=== PATIENT | male | born 1990 | race Caucasian/White ===

== ENCOUNTER 2016-08-07 19:22 | Emergency (ER) | payer SELFPAY ==
[~2016-08-07] VITALS: Ht 190.5 cm; Wt 87.3 kg
[2016-08-07 19:25] VITALS: TEMP 36.8; Ht 190.5 cm; Wt 87.3 kg
[2016-08-07] MEDS ORDERED: SODIUM CHLORIDE 0.9% 1000ML 1,000 ML IV STA ×2 (19:33)
[2016-08-07] MEDS ORDERED: ONDANSETRON INJ 2 MG/ML 2 ML VIAL IV STA (19:33)
[2016-08-07] MEDS ORDERED: OPTIRAY 320 IV PRN (19:45)
--- NOTE | 2016-08-07 19:48 | EMERGENCY ROOM VISIT NOTE ---
History Report prepared by Sami: Magda Villa Under the Supervision of: Dr. Ezequiel Reis M.D. First contact with patient: 19:29 Chief Complaint: HYPOGLYCEMIA Stated Complaint: LOW BLOOD SUGAR History of Present Illness The patient is a 26 year old male who presents to the Emergency Room with complaints of hyperglycemia over the past several days. His blood sugar upon arrival was 371. The patient has a history of diabetes since he was in middle school. He is insulin dependent and uses insulin injections. He did take his regular dose of insulin today, but hasn't eaten anything. He has been in DKA before but does not think he is currently in DKA. Currently, he complains of a lack of energy, decreased appetite, nausea, and central abdominal pain. Nothing makes the abdominal pain better or worse. It fluctuates between a 3 and 6 out of 10 in severity. He has had similar abdominal pain with elevated blood sugar in the past. He notes that he had one episode of diarrhea few days ago. He recently had cold like symptoms and reports a residual runny nose. Denies loss of consciousness, fever, chills, cough, sore throat, vomiting, urinary symptoms , back pain, or other complaints. He still has his gallbladder and appendix. No history of pancreatitis. Source of History: patient Onset: several days ago Position: other (global) Symptom Intensity: blood sugar 371 Timing: other (persistent) Associated Symptoms: + abdominal pain, + diarrhea, + nausea, No LOC, No chills, No cough, No fevers, No sorethroat, No urinary symptoms, No vomiting Note: Other symptoms: lack of energy Review of Systems See HPI for pertinent positives & negatives. A total of 10 systems reviewed and were otherwise negative. Past Medical & Surgical Medical Problems: (1) Diabetes Family History Diabetes mellitus FH: heart disease FHx: gallbladder disease Hypertension Social History Smoking Status: Former Smoker Alcohol Use: none Marital Status: single Housing Status: lives with family Current/Historical Medications Scheduled Insulin Human NPH (Humulin N), 24 UNITS SC QAM Insulin Human NPH (Humulin N), 12 UNITS SC QPM Insulin Lispro (Human) (Humalog), 1 DOSE SC UD Allergies Coded Allergies: No Known Allergies (Unverified , 08/07/16) Physical Exam Vital Signs Date Time Temp Pulse Resp B/P Pulse Ox O2 Delivery O2 Flow Rate FiO2 08/07/16 21:07 89 17 124/67 99 Room Air 08/07/16 20:50 60 08/07/16 20:04 70 20 118/65 98 Room Air 08/07/16 19:25 36.8 98 20 122/79 99 Room Air Physical Exam GENERAL: Patient is in no acute distress. HEENT: No acute trauma, normocephalic atraumatic, mucous membranes moist, no nasal congestion, no scleral icterus. NECK: No stridor, no adenopathy, no meningismus, trachea is midline. LUNGS: Clear to auscultation bilaterally, no wheeze, no rhonchi, breath sounds equal. HEART: Tachycardic with a regular rhythm, no murmurs. ABDOMEN: Soft, tender primarily in the right lower quadrant, mildly tender in the epigastrium, bowel sounds positive, no hernias, no peritonitis. EXTREMITIES: No cyanosis or edema, full range of motion of all the joints without pain or difficulty, no signs for acute trauma. NEUROLOGIC: Oriented x 3, no acute motor or sensory deficits, no focal weakness. SKIN: No rash, no jaundice, no diaphoresis. Medical Decision & Procedures ER Provider Diagnostic Interpretation: Radiology results and stated below per my review and radiologist interpretation: CHEST ONE VIEW PORTABLE CLINICAL HISTORY: Altered mental status. Weakness. COMPARISON STUDY: No previous studies for comparison. FINDINGS: The cardiac and mediastinal contours are normal. There is no evidence of focal pulmonary consolidation. There is no evidence of failure. No pleural effusions are visualized.[ IMPRESSION: No active disease in the chest. Electronically signed by: Ian Howard M.D. 08/07/2016 7:56 PM Dictated Date/Time: 08/07/2016 7:[address] ABD/PELVIS IV CONTRAST ONLY CLINICAL HISTORY: Right lower quadrant abdominal pain COMPARISON STUDY: None. TECHNIQUE: Following the IV administration of 116 mL of Optiray-320, CT scan of the abdomen and pelvis was performed from the lung bases to the proximal femurs. Images are reviewed in the axial, sagittal, and coronal planes. IV contrast was administered without complication. CT DOSE: 339.88 mGy.cm FINDINGS: Lower chest: The heart is normal in size and configuration, without pericardial effusion. The lung bases and pleural spaces are clear. Liver: The contrast-enhanced liver is normal in size, contour, and attenuation. There is no intrahepatic biliary ductal dilatation. The hepatic veins and portal veins are patent. Gallbladder: Contracted Spleen: Normal in size and attenuation. Pancreas: Unremarkable. Adrenal glands: Unremarkable. Kidneys: There is symmetric renal cortical enhancement. The kidneys are normal in size without hydronephrosis. Bowel: There are no transition zones indicate bowel obstruction. Evaluation the bowel is limited given the lack of oral contrast and the possibility of intra-abdominal fat. There is a low-lying cecum. The appendix is difficult to visualize in its entirety. There are no findings to indicate acute appendicitis. There is no evidence of acute diverticulitis. Peritoneum: There is no intraperitoneal free air or abdominal ascites. Vasculature: The abdominal aorta is normal in course and caliber. Adenopathy: None. Pelvic viscera: The bladder, and pelvic viscera are unremarkable. Skeletal structures: No destructive osseous lesions are seen. IMPRESSION: 1. Difficult study to interpret given the lack of orally administered contrast and the possibility of intra-abdominal fat 2. No evidence of bowel obstruction. No evidence of free air 3. No evidence of acute diverticulitis 4. The appendix is difficult to visualize in its entirety. The visualized portions of the appendix are felt to be within normal limits. Electronically signed by: Ian Howard M.D. 08/07/2016 9:32 PM Dictated Date/Time: 08/07/2016 9:26 PM Laboratory Results 08/07/16 20:00 Red Blood Count 4.57, Mean Corpuscular Volume 90.8, Mean Corpuscular Hemoglobin 31.3, Mean Corpuscular Hemoglobin Concent 34.5, Mean Platelet Volume 10.7, Neutrophils (%) (Auto) 88.2, Lymphocytes (%) (Auto) 7.6, Monocytes (%) (Auto) 3.5, Eosinophils (%) (Auto) 0.3, Basophils (%) (Auto) 0.2, Neutrophils # (Auto) 9.23, Lymphocytes # (Auto) 0.79, Monocytes # (Auto) 0.37, Eosinophils # (Auto) 0.03, Basophils # (Auto) 0.02 08/07/16 20:00 Test 08/07/16 20:00 08/07/16 21:38 White Blood Count 10.46 K/uL (4.8-10.8) Red Blood Count 4.57 M/uL (4.7-6.1) Hemoglobin 14.3 g/dL (14.0-18.0) Hematocrit 41.5 % (42-52) Mean Corpuscular Volume 90.8 fL (80-100) Mean Corpuscular Hemoglobin 31.3 pg (25-34) Mean Corpuscular Hemoglobin Concent 34.5 g/dl (32-36) Platelet Count 293 K/uL (130-400) Mean Platelet Volume 10.7 fL (7.4-10.4) Neutrophils (%) (Auto) 88.2 % Lymphocytes (%) (Auto) 7.6 % Monocytes (%) (Auto) 3.5 % Eosinophils (%) (Auto) 0.3 % Basophils (%) (Auto) 0.2 % Neutrophils # (Auto) 9.23 K/uL (1.4-6.5) Lymphocytes # (Auto) 0.79 K/uL (1.2-3.4) Monocytes # (Auto) 0.37 K/uL (0.11-0.59) Eosinophils # (Auto) 0.03 K/uL (0-0.5) Basophils # (Auto) 0.02 K/uL (0-0.2) RDW Standard Deviation 40.8 fL (36.4-46.3) RDW Coefficient of Variation 12.2 % (11.5-14.5) Immature Granulocyte % (Auto) 0.2 % Immature Granulocyte # (Auto) 0.02 K/uL (0.00-0.02) Urine Color YELLOW Urine Appearance CLEAR (CLEAR) Urine pH 5.5 (4.5-7.5) Urine Specific [place] 1.015 (1.000-1.030) Urine Protein NEG (NEG) Urine Glucose (UA) 3+ (NEG) Urine Ketones 3+ (NEG) Urine Occult Blood NEG (NEG) Urine Nitrite NEG (NEG) Urine Bilirubin NEG (NEG) Urine Urobilinogen NEG (NEG) Urine Leukocyte Esterase NEG (NEG) Anion Gap 13.0 mmol/L (3-11) Est Creatinine Clear Calc Drug Dose 113.4 ml/min Estimated GFR () 97.5 Estimated GFR (Non- 84.1 BUN/Creatinine Ratio 11.9 (10-20) Calcium Level 9.0 mg/dl (8.5-10.1) Total Bilirubin 1.2 mg/dl (0.2-1) Aspartate Amino Transf (AST/SGOT) 12 U/L (15-37) Alanine Aminotransferase (ALT/SGPT) 16 U/L (12-78) Alkaline Phosphatase 93 U/L (45-117) Total Protein 7.8 gm/dl (6.4-8.2) Albumin 3.9 gm/dl (3.4-5.0) Globulin 3.9 gm/dl (2.5-4.0) Albumin/Globulin Ratio 1.0 (0.9-2) Lipase 58 U/L (73-393) Beta-Hydroxybutyric Acid 26.57 mg/dL (0.2-2.81) Bedside Glucose 266 mg/dl (70-99) Laboratory results reviewed by me. Medications Administered Medications (Trade) Dose Ordered Sig/Wild Route Start Time Stop Time Status Last Admin Dose Admin Ondansetron HCl 4 mg 4 mg NOW STAT IV 08/07/16 19:33 08/07/16 19:40 DC 08/07/16 20:00 4 MG Sodium Chloride 1,000 ml @ 999 mls/hr Q1H1M STAT IV 08/07/16 19:33 08/07/16 20:33 DC 08/07/16 20:00 999 MLS/HR Sodium Chloride (Nss 1000ml) 1,000 ml @ 200 mls/hr Q5H STAT IV 08/07/16 19:33 08/08/16 00:32 08/07/16 20:00 200 MLS/HR Insulin Human Regular (novoLIN-R U-100 PER UNIT) 8 units NOW STAT IV 08/07/16 20:54 08/07/16 20:55 DC 08/07/16 21:07 8 UNITS ECG Indication: other (hyperglycemia) Rate (beats per minute): 65 Rhythm: sinus with SA Findings: no acute ischemic change, no ectopy ED Course 1931: The patient was evaluated in room B3. A complete history and physical exam was performed. 1932: Ordered NSS 1000 ml @ 200 mls/hr IV, NSS 1000 ml @ 999 mls/hr IV, Zofran Inj 4 mg IV. 2053: Ordered Insulin Human Regular 8 units IV. 2139: I reassessed the patient and updated him on results. 2143: Ordered Lactated Ringer's 1000 ml @ 999 mls/hr IV. 2144: The patient was signed out to Dr. Tamayo at the change of shift. Medical Decision Differential includes but is not limited to diabetic ketoacidosis, hyperglycemia , dehydration, electrolyte imbalance, UTI, pneumonia, pancreatitis, biliary colic, acute cholecystitis, appendicitis, viral illness. There is no leukocytosis or concerning anemia. No kidney failure. The patient was not acidotic. The patient was hyperglycemic with a value of around 400. Chest x-ray does not show pneumonia, there was no cellulitis on exam. Urinalysis shows ketones and glucose, no signs of infection. Abdominal and pelvis CT does not show appendicitis or diverticulitis. No acute surgical findings by CT scan. No hepatitis or pancreatitis. The patient was tachycardic and hyperglycemic. He had concerns for diabetic ketoacidosis. The patient received 2 L of IV saline. He was given 8 units of IV regular insulin. He received IV Zofran for nausea. The patient feels markedly improved , his heart rate has normalized. Repeat blood sugar is about 260. The patient is receiving a third liter of fluid, he is receiving a liter of Ringer's lactate. He will have a repeat blood sugar after the lactated Ringer solution. If doing well, the patient likely can be discharged home. Case management has talked with him about a family doctor follow-up appointment. At this point, Dr. Tamayo has assumed care at the change of shift. Please see his notes for the final disposition and plan. It appears the patient may have a viral illness which has triggered his hyperglycemia and dehydration. He was reassured and looks to be improving with his treatment in the emergency room. Impression Primary Impression: Hyperglycemia Additional Impressions: Right lower quadrant abdominal pain Dehydration Scribe Attestation The scribe's documentation has been prepared under my direction and personally reviewed by me in its entirety. I confirm that the note above accurately reflects all work, treatment, procedures, and medical decision making performed by me. Departure Information Dispostion Still a Patient (signed out to Dr. Tamayo) Referrals No Doctor, Assigned (PCP) Patient Instructions My [facility] Problem Qualifiers
--- NOTE | 2016-08-07 19:58 | DIAGNOSTIC IMAGING REPORT ---
CHEST ONE VIEW PORTABLE CLINICAL HISTORY: Altered mental status. Weakness. COMPARISON STUDY: No previous studies for comparison. FINDINGS: The cardiac and mediastinal contours are normal. There is no evidence of focal pulmonary consolidation. There is no evidence of failure. No pleural effusions are visualized.[ IMPRESSION: No active disease in the chest. Electronically signed by: Ian Howard M.D. 08/07/2016 7:56 PM Dictated Date/Time: 08/07/2016 7:56 PM
[2016-08-07 20:16] LABS: BASO % 0.2 %; BASO ABS # 0.02 K/uL (0-0.2); COMPLETE YES; EOS % 0.3 %; HEMATOCRIT 41.5 % (42-52); IG% 0.2 %; LYMPH % 7.6 %; LYMPH ABS # 0.79 K/uL (1.2-3.4); MEAN CELL VOLUME 90.8 fL (80-100); MEAN CORPUSCULAR HEMOGLOBIN 31.3 pg (25-34); MEAN CORPUSCULAR HGB CONC 34.5 g/dl (32-36); MEAN PLATELET VOLUME 10.7 fL (7.4-10.4); MONO % 3.5 %; NEUT % 88.2 %; PLATELET COUNT 293 K/uL (130-400); RED BLOOD COUNT 4.57 M/uL (4.7-6.1); WHITE BLOOD COUNT 10.46 K/uL (4.8-10.8)
[2016-08-07 20:28] LABS: MANUAL MICROSCOPIC REQUIRED? NO; URINE APPEARANCE CLEAR (CLEAR); URINE BILIRUBIN NEG (NEG); URINE COLOR YELLOW; URINE NITRITE NEG (NEG); URINE PH 5.5 (4.5-7.5); URINE SPECIFIC GRAVITY 1.015 (1.000-1.030); UROBILINOGEN NEG (NEG)
[2016-08-07 20:33] LABS: REVIEW REQ? NO
[2016-08-07] MEDS ORDERED: INSU100I SC (20:42)
[2016-08-07] MEDS ORDERED: INSHNI SC ×2 (20:42)
[2016-08-07 20:48] LABS: BUN/CREATININE RATIO 11.9 (10-20); CREATININE 1.2 mg/dl (0.60-1.40); POTASSIUM 4.3 mmol/L (3.5-5.1)
[2016-08-07] MEDS ORDERED: NovoLIN-R INSULIN PER UNIT CHARGE IV STA (20:54)
[2016-08-07 21:00] LABS: BETA-HYDROXYBUTYRATE 26.57 mg/dL (0.2-2.81)
[2016-08-07 21:08] LABS: ZZUR CULT IF INDIC CLEAN CATCH NO
--- NOTE | 2016-08-07 21:34 | DIAGNOSTIC IMAGING REPORT ---
CT ABD/PELVIS IV CONTRAST ONLY CLINICAL HISTORY: Right lower quadrant abdominal pain COMPARISON STUDY: None. TECHNIQUE: Following the IV administration of 116 mL of Optiray-320, CT scan of the abdomen and pelvis was performed from the lung bases to the proximal femurs. Images are reviewed in the axial, sagittal, and coronal planes. IV contrast was administered without complication. CT DOSE: 339.88 mGy.cm FINDINGS: Lower chest: The heart is normal in size and configuration, without pericardial effusion. The lung bases and pleural spaces are clear. Liver: The contrast-enhanced liver is normal in size, contour, and attenuation. There is no intrahepatic biliary ductal dilatation. The hepatic veins and portal veins are patent. Gallbladder: Contracted Spleen: Normal in size and attenuation. Pancreas: Unremarkable. Adrenal glands: Unremarkable. Kidneys: There is symmetric renal cortical enhancement. The kidneys are normal in size without hydronephrosis. Bowel: There are no transition zones indicate bowel obstruction. Evaluation the bowel is limited given the lack of oral contrast and the possibility of intra-abdominal fat. There is a low-lying cecum. The appendix is difficult to visualize in its entirety. There are no findings to indicate acute appendicitis. There is no evidence of acute diverticulitis. Peritoneum: There is no intraperitoneal free air or abdominal ascites. Vasculature: The abdominal aorta is normal in course and caliber. Adenopathy: None. Pelvic viscera: The bladder, and pelvic viscera are unremarkable. Skeletal structures: No destructive osseous lesions are seen. IMPRESSION: 1. Difficult study to interpret given the lack of orally administered contrast and the possibility of intra-abdominal fat 2. No evidence of bowel obstruction. No evidence of free air 3. No evidence of acute diverticulitis 4. The appendix is difficult to visualize in its entirety. The visualized portions of the appendix are felt to be within normal limits. Electronically signed by: Ian Howard M.D. 08/07/2016 9:32 PM Dictated Date/Time: 08/07/2016 9:26 PM
[2016-08-07] MEDS ORDERED: LACTATED RINGER'S 1000ML 1,000 ML IV STA (21:44)
[2016-08-07 23:40] VITALS: BP 113/61; PULSE 75; O2SAT 99
--- NOTE | 2016-08-08 02:08 | EMERGENCY ROOM VISIT NOTE ---
ED Visit Note Patient is a 26-year-old male who presents the ER and was seen and evaluated by Dr. Reis. He had a complete workup including CT, x-rays and CBC/BMP/LFTs. He was signed out to me awaiting the remainder of his fluids to finish. At that time the plan by Dr. Reis was to have him evaluated and recheck his blood sugar. If he was feeling well and his blood sugar continued to trend down he felt that this gentleman could be discharged and followed up as an outpatient. I did reevaluate the patient has blood sugars came down into the 100s. He notes he is feeling significantly better. He is tolerating liquids. He preferred to be discharged at this time and get workup as an outpatient. Upon review of his blood work he was not in DKA. I followed the plan set forth with Dr. Reis and the patient was discharged. I felt it was reasonable and patient was discharged follow-up as an outpatient. Of note care management is sitting him up with PCP. I stressed the importance of returning to the ER if anything worsens as he currently does not have a PCP established. Discussed with Pt concerning signs and symptoms to watch out for. Pt was instructed to follow up with their PCP and discussed with the patient their option to return to the ED at anytime for persistent or worsening symptoms. The appropriate anticipatory guidance and out-patient management, including indications for return to the emergency department, were explained at length to the patient and understood.
== END 2016-08-07 23:42 | disposition home or self-care (01) ==
LOC: C.EDB 19:23
DX: E11.65 Type 2 diabetes mellitus with hyperglycemia (principal); E86.0 Dehydration; R10.31 Right lower quadrant pain; Z79.4 Long term (current) use of insulin; Z87.891 Personal history of nicotine dependence; Z83.3 Family history of diabetes mellitus; Z82.49 Family history of ischemic heart disease and other diseases of the circulatory system; Z83.79 Family history of other diseases of the digestive system